=== PATIENT | male | born 1955 | race Caucasian/White ===

== ENCOUNTER → 2016-05-09 | Outpatient (CLI) | payer OTHER ==
[~2016-05-09] MED LIST: ATOR-24 PO; DLN/100 PO; DLN100 PO; HYDR12.56 PO; IBUP-1050 PO; IMAT400T PO; IMAT400T7 PO; PHEN32.44 PO; PHENOBARBITAL 97.2 MG PO
[2016-05-09 17:59] LABS: ALT/SGPT 46 U/L (12-78); AST/SGOT 31 U/L (15-37); BLOOD UREA NITROGEN 8 mg/dl (7-18); BUN/CREATININE RATIO 8.4 (10-20); CALCIUM 8.6 mg/dl (8.5-10.1); CARBON DIOXIDE 29 mmol/L (21-32); CHLORIDE 103 mmol/L (98-107); CREATININE 0.91 mg/dl (0.60-1.40); GLUCOSE 104 mg/dl (70-99); POTASSIUM 3.8 mmol/L (3.5-5.1); SODIUM 138 mmol/L (136-145)
[2016-05-09 18:00] LABS: PHENOBARBITAL 29.7 mcg/mL (15.0-40.0)
[2016-05-09 18:01] LABS: CHOLESTEROL 118 mg/dl (0-200); CHOLESTEROL/HDL RATIO 2.7; HDL CHOLESTEROL 43 mg/dl; LDL CHOLESTEROL CALCULATED 37 mg/dl; TRIGLYCERIDES 192 mg/dl (0-150); VERY LOW DENSITY LIPOPROT CALC 38 mg/dl
== END | disposition home or self-care (01) ==
LOC: C.LABPVFM 14:15
PROVIDERS: ATTEND Family Medicine
DX: E78.5 Hyperlipidemia, unspecified (principal); G40.309 Generalized idiopathic epilepsy and epileptic syndromes, not intractable, without status epilepticus; Z51.81 Encounter for therapeutic drug level monitoring; Z79.899 Other long term (current) drug therapy; I10 Essential (primary) hypertension; Z92.29 Personal history of other drug therapy; Z11.59 Encounter for screening for other viral diseases

== ENCOUNTER 2016-08-28 11:49 | Emergency (ER) | payer OTHER ==
[~2016-08-28] VITALS: Ht 185.4 cm; Wt 122.5 kg
[~2016-08-28 11:49] MED LIST changes: -IMAT400T7 PO; -PHEN32.44 PO
[2016-08-28 11:54] VITALS: BP 150/82; TEMP 36.8; Ht 185.4 cm; Wt 122.5 kg
[2016-08-28] MEDS ORDERED: PHEN32.44 PO (12:07)
[2016-08-28] MEDS ORDERED: IMAT400T7 PO (12:08)
--- NOTE | 2016-08-28 13:12 | DIAGNOSTIC IMAGING REPORT ---
LEFT HEEL MIN 2 VIEWS CLINICAL HISTORY: L heel pain pain COMPARISON: None. DISCUSSION: Heel spur. All remaining bony structures are unremarkable. Subtalar joint is intact. There is no evidence for soft tissue swelling. IMPRESSION: Heel spur. Otherwise negative study. The above report was generated using voice recognition software. It may contain grammatical, syntax or spelling errors. Electronically signed by: Romero Cagle M.D. 08/28/2016 1:11 PM Dictated Date/Time: 08/28/2016 1:10 PM
[2016-08-28 13:40] VITALS: PULSE 72; O2SAT 98
--- NOTE | 2016-08-28 20:41 | EMERGENCY ROOM VISIT NOTE ---
History First contact with patient: 12:34 Chief Complaint: HEEL PAIN Stated Complaint: LEFT HEEL PAIN History of Present Illness The patient is a 60 year old male who presents to the Emergency Room with complaints of left heel pain that has been worsening over the past month. The pain has been ongoing for the past month. The patient reports that he is on his feet all day long at home. He denies any known injury to the heel. He has not followed up with his family doctor regarding his current symptoms, and rates his pain a 9 out of 10 with weightbearing. The pain is worse in the morning after getting up, or when sitting for a while. Once he walks on the foot, the pain does seem to improve but never go away. The patient denies any pain extending into the calf or knee region. He denies any swelling of the left lower extremity. Review of Systems 10 system review was performed and was negative except for pertinent positives and negatives as indicated in history of present illness Past Medical/Surgical History Medical Problems: (1) Acute Venous Embolism & Thrombosis Unsp Deep Vessels Of Le (2) Diverticulosis Colon (W/O Ment Of Hemorrhage) (3) Epilepsy (4) Hyperlipidemia, Unspecified (5) Hypertension Nos (6) Leukemia (7) Vitamin D Deficiency Nos Surgical Problems: (1) History of lung surgery Family History FH: cancer FH: diabetes mellitus FH: gallbladder disease FH: heart disease FH: hypertension FH: seizures Social History Smoking Status: Former Smoker Alcohol Use: none Marital Status: single Housing Status: lives with family Occupation Status: unemployed Current/Historical Medications Scheduled Atorvastatin (Lipitor), 40 MG PO DAILY Hydrochlorothiazide (Hctz), 12.5 MG PO QD@08 Ibuprofen (Advil), 400 MG PO TID PRN Imatinib Mesylate (Imatinib Mesylate), 400 MG PO HS Phenobarbital (Phenobarbital), 97.2 MG PO DAILY Phenytoin Sodium (Dilantin), 200 MG PO AMPM Phenytoin Sodium (Dilantin), 100 MG PO EVERY AFTERNOON Physical Exam Vital Signs Date Time Temp Pulse Resp B/P (MAP) Pulse Ox O2 Delivery O2 Flow Rate FiO2 08/28/16 13:40 72 16 98 08/28/16 11:54 36.8 70 18 150/82 96 Room Air Physical Exam CONSTITUTIONAL: Healthy and well nourished. Alert and oriented X 3 with positive affect. HEENT: Normocephalic, atraumatic. Pupils equal, round and reactive. NECK: Full active range of motion without discomfort. MUSCULOSKELETAL: Examination of the left foot does not show any obvious soft tissue edema, erythema or wounds. The patient has tenderness over the origin of the plantar fascia. He also has mild tenderness through the lower Achilles tendon. No tenderness to palpation through the gastrocnemius. No focal tenderness over the ankle joint lines. Negative anterior draw. No focal tenderness over the dorsal midfoot or phalanges. Capillary refill is less than 2 seconds. INTEGUMENTARY: No rash or other significant dermatologic conditions noted. NEUROLOGIC: Left foot and toes are sensory intact. Medical Decision & Procedures ER Provider Diagnostic Interpretation: My interpretation of left heel x-rays does not show any acute fractures. A heel spur is noted. Radiologist report is as follows: LEFT HEEL MIN 2 VIEWS CLINICAL HISTORY: L heel pain pain COMPARISON: None. DISCUSSION: Heel spur. All remaining bony structures are unremarkable. Subtalar joint is intact. There is no evidence for soft tissue swelling. IMPRESSION: Heel spur. Otherwise negative study. ED Course Patient history and physical exam were performed. Nurse's notes were reviewed. Vital signs were reviewed and normal. History and clinical exam are consistent with plantar fasciitis. X-rays of the heel shows a small bone spur without evidence for fracture. The patient was given a handout regarding plantar fasciitis. I stressed the importance of deep ice massage and stretching. He was instructed to limit weightbearing until symptoms improve. I did suggest that he follow-up with Dr. Sen for further reevaluation and management as the patient reports that he has to be on his feet throughout the day, and understands that this is not a quick fix. He was encouraged to alternate ibuprofen and Tylenol as needed for pain. The patient was happy with plan of care, voiced understanding of all discharge instructions, and rated his pain a 4 out of 10 at the conclusion of my exam. Medical Decision Medication Reconcilliation Current Medication List: was personally reviewed by me Blood Pressure Screening Patient's blood pressure: Normal blood pressure Impression Primary Impression: Plantar fasciitis of left foot Departure Information Referrals Fantasma Wiggins M.D. (PCP) Patient Instructions My [facility]
== END 2016-08-28 13:41 | disposition home or self-care (01) ==
LOC: C.EDB 11:50 → C.EDD 13:41
DX: M72.2 Plantar fascial fibromatosis (principal); C95.90 Leukemia, unspecified not having achieved remission; G40.909 Epilepsy, unspecified, not intractable, without status epilepticus; I10 Essential (primary) hypertension; E78.5 Hyperlipidemia, unspecified; Z86.718 Personal history of other venous thrombosis and embolism; Z87.891 Personal history of nicotine dependence; Z98.890 Other specified postprocedural states; Z83.3 Family history of diabetes mellitus; Z82.49 Family history of ischemic heart disease and other diseases of the circulatory system; Z82.0 Family history of epilepsy and other diseases of the nervous system; Z79.899 Other long term (current) drug therapy

== ENCOUNTER → 2016-11-12 | Outpatient (CLI) | payer OTHER ==
[~2016-11-12] MED LIST changes: -IMAT400T PO; +IMAT400T7 PO; +PHEN32.44 PO; -PHENOBARBITAL 97.2 MG PO
[2016-11-12 17:39] LABS: ALT/SGPT 40 U/L (12-78); AST/SGOT 25 U/L (15-37); BLOOD UREA NITROGEN 10 mg/dl (7-18); BUN/CREATININE RATIO 10.5 (10-20); CALCIUM 8.9 mg/dl (8.5-10.1); CARBON DIOXIDE 27 mmol/L (21-32); CHLORIDE 102 mmol/L (98-107); CREATININE 0.93 mg/dl (0.60-1.40); GLUCOSE 115 mg/dl (70-99); POTASSIUM 3.7 mmol/L (3.5-5.1); SODIUM 136 mmol/L (136-145)
[2016-11-12 17:42] LABS: CHOLESTEROL 131 mg/dl (0-200); CHOLESTEROL/HDL RATIO 2.6; HDL CHOLESTEROL 51 mg/dl; LDL CHOLESTEROL CALCULATED 53 mg/dl; TRIGLYCERIDES 133 mg/dl (0-150); VERY LOW DENSITY LIPOPROT CALC 27 mg/dl
[2016-11-12 17:54] LABS: PHENOBARBITAL 24.1 mcg/mL (15.0-40.0)
== END ==
LOC: C.LABPVFM 14:50
PROVIDERS: ATTEND Family Medicine
DX: E78.5 Hyperlipidemia, unspecified (principal); I10 Essential (primary) hypertension; G40.309 Generalized idiopathic epilepsy and epileptic syndromes, not intractable, without status epilepticus

== ENCOUNTER 2017-01-17 15:17 | Emergency (ER) | payer OTHER ==
[~2017-01-17] VITALS: Ht 182.9 cm; Wt 124.7 kg
[2017-01-17 15:18] VITALS: TEMP 37; Ht 182.9 cm; Wt 124.7 kg
[2017-01-17] MEDS ORDERED: XYLOCAINE 1%/SOD BICARB 20 ML VIAL INFIL STA (15:26)
--- NOTE | 2017-01-17 15:34 | EMERGENCY ROOM VISIT NOTE ---
ED Visit Note First contact with patient: 15:22 Chief Complaint: "Laceration on left hand fingers". History of Present Illness: This patient is a 61-year-old male who presents to the Emergency Department via private vehicle for evaluation of their left fourth digit laceration. Patient sustained the laceration while moving a log splitter and crushed it between the wood pile and the hitch on the splitter. They report a minimal amount of bleeding initially. They deny any numbness or tingling into the distal extremity. They report no decreased range of motion of the affected digit. Patient rates his current discomfort as a 0/10. Patient' s Tetanus status is believed to be currently up-to-date. Medications: As noted below Allergies: None PMH: No pertinent SHx: Patient lives locally ROS: All pertinent positive and negative review of systems are appropriately documented in the History of Present Illness. Physical Exam: VITAL SIGNS - Vital signs and nursing notes were reviewed. Stable. Hypertensive. GENERAL -61-year-old male appearing his stated age who is in no acute distress. Communicates well with provider and answers questions appropriately. SKIN - There is a 1.5 cm long laceration noted to the ventral aspect at the base of the left fourth digit at the flexor crease. The edges gape apart with traction. No foreign bodies appreciated. Upon further examination there are no deep structures including vessel, tendon, or bony structures appreciated. There is no active bleeding noted. MUSCULOSKELETAL - Laceration as described above. +5/5 strength appreciated of the affected digit. Full range of motion of the affected digit. NEUROLOGIC - Spinothalamic tract was found to be intact with ability to discriminate sharp versus dull sensation. No sensory defects of the dorsal column were appreciated utilizing light touch for evaluation. VASCULAR - Capillary refill was brisk. IMAGING: L FINGER(S) MIN 2 VIEWS ROUTINE CLINICAL HISTORY: L 4th digit trauma at base. Concerned for FB and fx. COMPARISON: None FINDINGS: Alignment of the left fourth finger is anatomic. No acute fracture is identified. No radiopaque foreign bodies are identified. IMPRESSION: No fracture or radiopaque foreign body within the left fourth digit. Electronically signed by: Geo Mclain M.D. 01/17/2017 4:37 PM Dictated Date/Time: 01/17/2017 4:35 PM ED Course: Patient was seen and evaluated by myself. Risks and benefits of performing primary wound closure versus no repair were discussed with the patient who verbalizes understanding. Verbal consent was obtained prior to performing the procedure. 2 cc of buffered 1% lidocaine was used to perform local anesthetization of the left fourth digit. The wound was cleansed and prepped in the typical sterile fashion utilizing normal saline and Betadine. The wound was sterilely draped. Once proper anesthetization was established, the wound was further examined and demonstrated no deep involvement. The wound was copiously irrigated with normal saline and Betadine. The wound was closed using 3 simple, 5-0 nylon sutures with the wound edges being well approximated. Patient tolerated the procedure well. No complications were met. The wound was cleansed and dressed with a Bacitracin dressing. A metal splint was applied to the finger for comfort. He will be started on Keflex for infection prophylaxis secondary to the mechanism of injury/dirty nature of the wound. He was given the first dose here Patient educated on worrisome symptoms for return visit to the Emergency Department. Patient discharged to home in good condition. He is to return in 14 days for removal of the sutures. Problem List Medical Problems: (1) Epilepsy Status: Chronic (2) Leukemia Status: Chronic Current/Historical Medications Scheduled Atorvastatin (Lipitor), 40 MG PO DAILY Cephalexin Monohydrate (Keflex), 500 MG PO BID Hydrochlorothiazide (Hctz), 12.5 MG PO QD@08 Ibuprofen (Advil), 400 MG PO TID PRN Imatinib Mesylate (Imatinib Mesylate), 400 MG PO HS Phenobarbital (Phenobarbital), 97.2 MG PO DAILY Phenytoin Sodium (Dilantin), 200 MG PO AMPM Phenytoin Sodium (Dilantin), 100 MG PO EVERY AFTERNOON Allergies Coded Allergies: No Known Allergies (Unverified , 10/15/14) Vital Signs Date Time Temp Pulse Resp B/P (MAP) Pulse Ox O2 Delivery O2 Flow Rate FiO2 01/17/17 16:49 69 20 127/79 96 Room Air 01/17/17 15:18 37.0 77 20 161/83 99 Room Air Medications Administered Medications (Trade) Dose Ordered Sig/Yadira Route Start Time Stop Time Status Last Admin Dose Admin Cephalexin Monohydrate (Keflex Cap) 500 mg NOW STAT PO 01/17/17 16:30 01/17/17 16:31 DC 01/17/17 16:30 500 MG Departure Information Impression Primary Impression: Laceration Dispostion Home / Self-Care Condition GOOD Prescriptions Cephalexin Monohydrate (Keflex) 500 Mg Cap 500 MG PO BID for 7 Days, #14 CAP Prov: Lawrence Villalba PA-C 01/17/17 Referrals Fantasma Wiggins M.D. (PCP) Patient Instructions My [facility] Additional Instructions Discharge Instructions: You have received 3 sutures on your finger. These sutures are NOT dissolvable and WILL need to be removed by a health care provider in 14 days. You can return to the Emergency Department or contact your Primary Care Provider to have the sutures removed. Keflex every 12 hours to help prevent infection. Please wear the splint for comfort until the sutures are removed. Proper wound care is essential for adequate wound healing and infection prevention. You can shower and clean the wound with soap and water. Do not scour over the wound, pat dry with a towel. Do not submerse the wound (i.e. bathe or dish wash) until the sutures have been removed. You can use an antibiotic ointment with a dressing over the wound for the next 3-4 days then same bandage just no neosporin. After this time you may leave the wound dry and open to the air. If crust develops over the wound you can use a Q-tip to apply a 1:1 peroxide:water solution to clean the wound. Look for signs of infection of the wound including: increased pain, swelling, foul discharge, streaking, or increased temperature. If any of these are noticed you should return to the Emergency Department for further assessment and treatment. As with any laceration you may have received nerve damage to the surrounding tissues. This damage may or may not be permanent. You should keep the area covered with sunscreen for the first 6 months to 1 year when at risk for exposure to help minimize scarring. You can also use scar reducing creams or Vitamin E oil to help minimize scarring. For pain control, you can use the following [id number] medicines (if >12 yo): - Regular strength (325mg/tab) Tylenol (acetaminophen) 2 tabs every 4-6 hours as needed. Do not exceed 12 tablets in a 24 hour period. Avoid taking more than 3 grams (3000 mg) of Tylenol per day. This includes any other sources of acetaminophen you may take on a regular basis. - Regular strength (200 mg/tab) Advil (ibuprofen) 1-2 tabs every 4-6 hours as needed. Do not exceed a dose of 3200 mg per day. Return to the emergency department if your symptoms worsen despite treatment course outlined above.
[2017-01-17] MEDS ORDERED: CEPHALEXIN MONOHYDRATE 250 MG CAP PO STA (16:30)
[2017-01-17] MEDS ORDERED: CEPH500C PO (16:32)
--- NOTE | 2017-01-17 16:38 | DIAGNOSTIC IMAGING REPORT ---
L FINGER(S) MIN 2 VIEWS ROUTINE CLINICAL HISTORY: L 4th digit trauma at base. Concerned for FB and fx. COMPARISON: None FINDINGS: Alignment of the left fourth finger is anatomic. No acute fracture is identified. No radiopaque foreign bodies are identified. IMPRESSION: No fracture or radiopaque foreign body within the left fourth digit. Electronically signed by: Geo Mclain M.D. 01/17/2017 4:37 PM Dictated Date/Time: 01/17/2017 4:35 PM
[2017-01-17 16:49] VITALS: BP 127/79; PULSE 69; O2SAT 96
== END 2017-01-17 16:51 | disposition home or self-care (01) ==
LOC: C.EDB 15:18 → C.EDD 16:51
DX: S61.215A Laceration without foreign body of left ring finger without damage to nail, initial encounter (principal); W23.0XXA Caught, crushed, jammed, or pinched between moving objects, initial encounter; Z79.1 Long term (current) use of non-steroidal anti-inflammatories (NSAID)

== ENCOUNTER 2017-01-30 09:52 | Emergency (ER) | payer OTHER ==
[~2017-01-30] VITALS: Ht 182.9 cm; Wt 123.1 kg
[2017-01-30 09:55] VITALS: BP 142/78; PULSE 69; TEMP 36.7; O2SAT 97; Ht 182.9 cm; Wt 123.1 kg
--- NOTE | 2017-01-30 10:15 | EMERGENCY ROOM VISIT NOTE ---
History First contact with patient: 10:02 Chief Complaint: SUTURE/STAPLE REMOVAL Stated Complaint: SUTURE REMOVAL Nursing Triage Summary: pt here for suture removal from left palm of hand. 3 sutures placed here History of Present Illness The patient is a 61 year old male who presents to the Emergency Room for suture removal from a left hand laceration that was repaired in our facility 13 days ago. The patient denies any wound complications or chronic pain. Review of Systems Noncontributory Past Medical/Surgical History Medical Problems: (1) Acute Venous Embolism & Thrombosis Unsp Deep Vessels Of Le (2) Diverticulosis Colon (W/O Ment Of Hemorrhage) (3) Epilepsy (4) Hyperlipidemia, Unspecified (5) Hypertension Nos (6) Leukemia (7) Vitamin D Deficiency Nos Surgical Problems: (1) History of lung surgery Family History FH: cancer FH: diabetes mellitus FH: gallbladder disease FH: heart disease FH: hypertension FH: seizures Social History Smoking Status: Never Smoker Alcohol Use: none Marital Status: single Housing Status: lives with family Occupation Status: unemployed Current/Historical Medications Scheduled Atorvastatin (Lipitor), 40 MG PO DAILY Hydrochlorothiazide (Hctz), 12.5 MG PO QD@08 Ibuprofen (Advil), 400 MG PO TID PRN Imatinib Mesylate (Imatinib Mesylate), 400 MG PO HS Phenobarbital (Phenobarbital), 97.2 MG PO DAILY Phenytoin Sodium (Dilantin), 200 MG PO AMPM Phenytoin Sodium (Dilantin), 100 MG PO EVERY AFTERNOON Physical Exam Vital Signs Date Time Temp Pulse Resp B/P (MAP) Pulse Ox O2 Delivery O2 Flow Rate FiO2 01/30/17 09:55 36.7 69 18 142/78 97 Room Air Pain Rating (0-10): 0 Physical Exam MUSCULOSKELETAL: Examination shows a well-healing laceration at the volar base of the fourth finger/palm region. No erythema, fluctuance, drainage or diastases noted. All sutures were removed without any complications. Medical Decision & Procedures ED Course The patient was encouraged to avoid any undue strain on the wound. Additional wound care instructions were also discussed with the patient. Medical Decision Blood Pressure Screening Patient's blood pressure: Normal blood pressure Impression Primary Impression: Encounter for removal of sutures Additional Impression: Laceration of left hand Departure Information Referrals Fantasma Wiggins M.D. (PCP) Patient Instructions My [facility] Problem Qualifiers Additional Impression: Laceration of left hand Encounter type: subsequent encounter Foreign body presence: without foreign body Qualified Codes: S61.412D - Laceration without foreign body of left hand , subsequent encounter
== END 2017-01-30 10:09 | disposition home or self-care (01) ==
LOC: C.EDB 09:53
DX: S61.412D Laceration without foreign body of left hand, subsequent encounter (principal); X58.XXXD Exposure to other specified factors, subsequent encounter

== ENCOUNTER → 2017-05-29 | Outpatient (CLI) | payer OTHER ==
[2017-05-29 18:01] LABS: ALBUMIN 3.7 gm/dl (3.4-5.0); BLOOD UREA NITROGEN 7 mg/dl (7-18); CALCIUM 8.6 mg/dl (8.5-10.1); CARBON DIOXIDE 27 mmol/L (21-32); CREATININE 0.95 mg/dl (0.60-1.40); GLUCOSE 101 mg/dl (70-99); POTASSIUM 4.1 mmol/L (3.5-5.1); SODIUM 136 mmol/L (136-145)
[2017-05-29 18:07] LABS: ALKALINE PHOSPHATASE 109 U/L (45-117); ALT/SGPT 44 U/L (12-78); AST/SGOT 27 U/L (15-37); CHOLESTEROL 139 mg/dl (0-200); LDL CHOLESTEROL CALCULATED 56 mg/dl; TOTAL PROTEIN 7.4 gm/dl (6.4-8.2)
[2017-05-29 18:09] LABS: PHENYTOIN (DILANTIN) 5.1 mcg/mL (10-20)
== END | disposition home or self-care (01) ==
LOC: C.LABPVFM 13:24
PROVIDERS: ATTEND Nurse Practitioner Family
DX: G40.309 Generalized idiopathic epilepsy and epileptic syndromes, not intractable, without status epilepticus (principal); E78.5 Hyperlipidemia, unspecified; I10 Essential (primary) hypertension; Z51.81 Encounter for therapeutic drug level monitoring

== ENCOUNTER → 2017-06-12 | Outpatient (CLI) | payer OTHER | END | disposition home or self-care (01) | LOC: C.LABPVFM 09:44 | PROVIDERS: ATTEND Nurse Practitioner Family | DX: Z51.81 Encounter for therapeutic drug level monitoring (principal); Z79.899 Other long term (current) drug therapy ==

== ENCOUNTER 2023-09-23 11:27 | Observation (INO) ==
[2023-09-23] MEDS ORDERED: VANCOMYCIN CONSULT ACTIVE PRN (11:47)
--- NOTE | 2023-09-23 11:52 | Emergency Department Note ---
Impression & Plan Cellulitis, Acute leg pain, Hyperglycemia ED Provider Note NAME: BENEDICT GONZALEZ AGE: 67 SEX: M : 1955 ARRIVES VIA: Walk-In INFORMANT: Patient ED PROVIDER(S): Vahe Quinn DO CHIEF COMPLAINT: cellulitis HPI: Patient is a 67-year-old male with a past medical history of PACs, effusion, hypertension, hyperlipidemia who presents to the ER for left calf pain. He notes this started last Thursday or Thursday. It has been gradually getting worse. He was seen here and placed on antibiotics and is taking Keflex. He notes it has continued to get worse. Denies any fevers. No headache or change in vision. No chest pain or shortness of breath. No nausea, vomiting, or diarrhea. ADDITIONAL HISTORY OBTAINED: Per HPI Chronic Medical/Social Conditions Affecting Care: Per HPI PAST MEDICAL HISTORY:See Below PAST SURGICAL HISTORY:See Below FAMILY HISTORY:See Below SOCIAL HISTORY:See Below HOME MEDICATIONS:See Below ALLERGIES:See Below VITALS:See Below PHYSICAL EXAMINATION: GENERAL: Sitting up in bed, alert, well appearing, well nourished, no distress, non-toxic EYE EXAM: normal conjunctiva. OROPHARYNX:mucous membranes are moist LUNGS: Clear to auscultation. Normal chest wall mechanics HEART: no murmurs, S1 normal and S2 normal ABDOMEN: abdomen soft, non-tender, normo-active bowel sounds, no masses, no rebound or guarding. BACK: Back is symmetrical on inspection and there is no deformity, no midline tenderness, no CVA tenderness. UPPER EXTREMITIES: upper extremities are grossly normal. LOWER EXTREMITIES: Erythema of the left calf circumferentially. Skin is warm and tender to palpation. NEURO EXAM: Normal sensorium, cranial nerves II-XII grossly intact, normal speech, no gross weakness of arms, no gross weakness of legs. MEDICAL DECISION MAKING: Patient is a 67-year-old male who presents ER for the above-stated complaint. IV was established blood work is obtained. Labs show no significant leukocytosis or anemia. BMP with a mild hyponatremia 133. LFTs bilirubin is unremarkable. On exam clinically patient has a left lower extremity cellulitis which is warm and tender to palpation. Patient was given IV Rocephin and vancomycin. Patient was updated bedside. Discussed with the hospitalist for further evaluation management treatment. His Doppler of the left lower extremity shows no DVT performed on the this month. This was not repeated here. Consults/Care Managements Discussions: Per MDM Triage Nursing notes reviewed. Limited review of prior medical records performed Vital Signs: reviewed and remarkable for HTN Differential diagnosis: Cellulitis, abscess, MRSA infection, DVT, necrotizing fasciitis, dermatitis, drug eruption, allergic reaction, as well as other pathologies. ER treatment provided: See below Diagnostics interpreted by me include EKG and cardiac monitoring as listed below: -Cardiac Monitoring: An order was placed for continuous cardiac monitoring. The monitor shows a rate of 80 with sinus rhythm. -ECG: none -Laboratory studies:Interpreted by me as stated above in MDM and shown below. Imaging studies: Xrays: As interpreted by me:none CTs show: none Procedures:none Critical Care: None Past Med/Surg History Problem List (Updated 09/23/23 @ 14:19 by Vahe Quinn DO) Hyperglycemia (Acute) Acute leg pain (Acute) Cellulitis (Acute) Cellulitis (Acute) Hypothyroidism PAC (premature atrial contraction) Irregular heart rate Diabetes mellitus Excessive cerumen in both ear canals Effusion, left knee Left knee pain Conductive hearing loss of right ear with unrestricted hearing of left ear Hyperlipidemia Hypertension (Chronic) Chronic granulocytic leukemia History of long-term treatment with high-risk medication (Chronic) Primary generalized epilepsy, major Vitamin D deficiency Medical History (Updated 09/23/23 @ 14:19 by Vahe Quinn DO) Acute venous embolism, thrombosis of superfic veins of upper extremity Calcific tendinitis Diverticulosis of colon Elevated Dilantin level Hypocalcemia Diffuse pain in left lower extremity Therapeutic drug monitoring Seizure hx of grand mal, last seizure about 30 yrs ago ()--on meds Surgical History History of lung surgery right lung for pleurisy History of colonoscopy History of tooth extraction all top teeth, wisdom teeth History of lung surgery Family History Brother Family hx of colon cancer Pancreatic cancer Colorectal cancer Mother Pancreatic cancer Hypertension Father Myocardial infarction Prostate cancer Denies family history of Ovarian cancer Clotting disorder Breast cancer Social History Smoking Status: Former smoker Tobacco Type: Cigarettes Age Quit Using Tobacco: 25; packs per day: 1.5; Cigarettes Per Day: 30; Second Hand Exposure: No (father smoked); Do You Dip or Chew Tobacco: No; Hx Alcohol Use: No Hx Substance Use: No Preferred Language: Bulgarian Communication Ability: Effective Visual Impairment: Limited Hearing Ability: Normal 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 Beliefs That Will Affect Care: None marital status: Single Current Living Situation: Alone current occupational status: retired How many Children do You have: 0 Feels Safe at Home: Hesitant to Answer Childhood Exposure to Second-Hand Smoke: Yes Diet: regular caffeine: Yes during the past year weight has: remained stable Dental Care, Regularly: Yes Physical Activity Frequency: Daily Seatbelt Use: always Sunscreen Use: No Assistive Devices: Denture - Upper, Denture - Lower and Glasses Allergies Allergies Allergy/AdvReac Type Severity Reaction Status Date / Time No Known Drug Allergies Allergy Verified 08/04/23 14:25 Home Meds Home Medications Medication Instructions Recorded Confirmed imatinib 400 mg tablet (Gleevec) 400 mg PO HS 01/27/18 09/23/23 Previous Rx's Medication Instructions Recorded atorvastatin 20 mg tablet 20 mg PO QPM #90 tabs 02/03/23 phenytoin sodium extended 100 mg 100 mg PO .COMPLEX #150 caps 02/16/23 capsule metformin 500 mg tablet,extended 500 mg PO BID #180 tabs 07/22/23 release 24 hr losartan 50 mg tablet 75 mg (1.5 x 50 mg) PO DAILY #45 08/04/23 tabs phenobarbital 97.2 mg tablet 194.4 mg (2 x 97.2 mg) PO HS #60 08/12/23 tabs levothyroxine 50 mcg capsule 50 mcg PO DAILY #30 caps 08/25/23 cephalexin 500 mg capsule 500 mg PO QID 7 days #28 caps 09/17/23 Results & Data (ED) Vital Signs Vital Signs - 24 hr 09/23/23 11:29 Temperature 36.7 C Temperature Source Temporal Artery Scan Pulse Rate 88 Respiratory Rate 18 Respiratory Effort / Characteristics Non-Labored Spontaneous Respiratory Depth Normal Blood Pressure 174/86 H Blood Pressure Mean 115 Blood Pressure Position Sitting Pulse Oximetry 96 Oxygen Delivery Method Room Air Sepsis Recent Fever Within 48 Hours No Sepsis New/Unexplained Change in Mental Status No Sepsis Action Taken by Nursing No Action Required Laboratory Data 09/23/23 12:02 09/23/23 12:02 Lab Results 09/23/23 Range/Units 12:02 WBC 7.17 (4.8-10.8) K/ul RBC 3.95 L (4.70-6.10) M/uL Hgb 12.3 L (14.0-18.0) g/dl Hct 35.8 L (42.0-52.0) % MCV 90.6 (80.0-100.0) fL MCH 31.1 (25.0-34.0) pg MCHC 34.4 (32.0-36.0) g/dL RDW Std Deviation 41.2 (36.4-46.3) fL RDW Coeff of Maverick 12.3 (11.5-14.5) % Plt Count 530 H (130-400) K/uL MPV 10.2 (9.4-12.4) fL Immature Gran % (Auto) 1.5 % Neut % (Auto) 57.5 % Lymph % (Auto) 25.5 % [place] % (Auto) 8.8 % Eos % (Auto) 5.7 % Baso % (Auto) 1.0 % Neut # (Auto) 4.12 (1.40-6.50) K/uL Lymph # (Auto) 1.83 (1.20-3.40) K/uL [place] # (Auto) 0.63 H (0.11-0.59) K/uL Eos # (Auto) 0.41 (0.00-0.50) K/uL Baso # (Auto) 0.07 (0.00-0.20) K/uL Immature Gran # (Auto) 0.11 (0.01-0.20) K/uL Sodium 133 L (136-145) mmol/L Potassium 4.2 (3.5-5.1) mmol/L Chloride 101 (98-107) mmol/L Carbon Dioxide 24 (21-32) mmol/L Anion Gap 8 (3-11) BUN 7 (6-23) mg/dl Creatinine 0.76 (0.6-1.4) mg/dl Est Cr Clr Drug Dosing 133.3 ml/min Est GFR ( Amer) 107.9 ml/min Est GFR (Non-Af Amer) 93.1 ml/min BUN/Creatinine Ratio 9.2 L (10-20) Glucose 265 H (70-99(Fasting)) mg/dl Calcium 8.7 (8.6-10.3) mg/dl Total Bilirubin 0.3 (0.2-1.0) mg/dl AST 14 (13-39) U/L ALT 18 (7-52) U/L Alkaline Phosphatase 76 (34-104) U/L Total Protein 6.5 (6.0-8.3) gm/dl Albumin 3.7 (3.4-5.0) gm/dl Globulin 2.8 (2.5-4.0) gm/dl Albumin/Globulin Ratio 1.3 (0.9-2) Administered Medications Vancomycin HCl 2,750 mg/ (Sodium Chloride) 555 mls @ 200 mls/hr IV NOW ONE Stop: 09/23/23 14:16 Last Admin: 09/23/23 12:16 Dose: 200 mls/hr Documented By: CJ Discontinued Medications Ceftriaxone Sodium (Rocephin) 2,000 mg in 50 mls @ 100 mls/hr IV NOW STA Stop: 09/23/23 12:16 Last Infusion: 09/23/23 12:28 Dose: Infused Documented By: Admin: 09/23/23 11:57 Dose: 100 mls/hr Documented By: CJ Discharge Plan Visit Data Chief Complaint: Infection Stated Complaint: SKIN INFECTION ED Provider: Vahe Quinn Discharge Problem: Cellulitis, Acute leg pain, Hyperglycemia Forms Stand Alone Forms: My [facility] Prescriptions Prescriptions: No Action atorvastatin 20 mg tablet 20 mg PO QPM Qty: 90 3RF phenytoin sodium extended 100 mg capsule 100 mg PO .COMPLEX Qty: 150 11RF Rx Instructions: 300 mg (3x100 mg) po bid per pt 100 mg PO TAKE 2 CAPSULES IN THE MORNING, 1 CAPSULE MID DAY, AND 2 CAPSULES IN THE EVENING.; metformin 500 mg tablet extended release 24 hr 500 mg PO BID Qty: 180 3RF phenobarbital 97.2 mg tablet 194.4 mg PO HS Qty: 60 5RF levothyroxine 50 mcg capsule 50 mcg PO DAILY Qty: 30 5RF losartan 50 mg tablet 75 mg PO DAILY Qty: 45 11RF Rx Instructions: pt aware dose change imatinib [Gleevec] 400 mg Tablet 400 mg PO HS cephalexin 500 mg capsule 500 mg PO QID 7 Days Qty: 28 0RF Referrals Referrals: Bree Branch CRNP [Primary Care Provider] - Discharge Problem: Cellulitis Qualifiers: Site of cellulitis: unspecified site Qualified Code(s): L03.90 - Cellulitis, unspecified Acute leg pain Qualifiers: Laterality: left Qualified Code(s): M79.605 - Pain in left leg
[2023-09-23] MEDS: cefTRIAXone SODIUM 2,000 MG/50 ML BAG IV STA (11:57)
[2023-09-23] MEDS: VANCOMYCIN HCL 2,750 MG in SODIUM CHLORIDE 0.9% 500 ML IV ONE (12:16)
[2023-09-23 12:21] LABS: Basophils # (auto) 0.07 K/uL (0.00-0.20); Eosinophils # (auto) 0.41 K/uL (0.00-0.50); Eosinophils % (auto) 5.7 %; Hematocrit (blood only) 35.8 % (42.0-52.0); Hemoglobin 12.3 g/dl (14.0-18.0); Immature Granulocytes # (auto) 0.11 K/uL (0.01-0.20); Immature Granulocytes % (auto) 1.5 %; Lymphocytes # (auto) 1.83 K/uL (1.20-3.40); Lymphocytes % (auto) 25.5 %; Mean Corpuscular Hemoglobin 31.1 pg (25.0-34.0); Mean Corpuscular Hgb Conc 34.4 g/dL (32.0-36.0); Mean Corpuscular Volume 90.6 fL (80.0-100.0); Mean Platelet Volume 10.2 fL (9.4-12.4); Monocytes # (auto) 0.63 K/uL (0.11-0.59); Monocytes % (auto) 8.8 %; Neutrophils # (auto) 4.12 K/uL (1.40-6.50); Neutrophils % (auto) 57.5 %; Platelet Count 530 K/uL (130-400); RDW Coefficient of Variation 12.3 % (11.5-14.5); RDW Standard Deviation 41.2 fL (36.4-46.3); Red Blood Count 3.95 M/uL (4.70-6.10); White Blood Count 7.17 K/ul (4.8-10.8)
[2023-09-23 12:32] LABS: Albumin Globulin Ratio 1.3 (0.9-2); Albumin Level 3.7 gm/dl (3.4-5.0); BUN Creatinine Ratio 9.2 (10-20); Bilirubin,Total 0.3 mg/dl (0.2-1.0); Calcium 8.7 mg/dl (8.6-10.3); Creatinine Clr Calc Pharmacy 133.3 ml/min; Est GFR (African American) 107.9 ml/min; Est GFR (Non-African American) 93.1 ml/min; Globulin 2.8 gm/dl (2.5-4.0); Potassium 4.2 mmol/L (3.5-5.1); Total Protein 6.5 gm/dl (6.0-8.3)
--- NOTE | 2023-09-23 12:50 | History & Physical Report ---
Date of Service September 23, 2023 Assessment & Plan (1) Cellulitis: Plan: Diabetic cellulitis and potentially immunocompromise patient, failed Keflex Will transition to Unasyn for DFI with history of immunosuppressants, without high risk neutropenia. Target augmentin for dc if improving. Received empiric vancomycin while in the ER. No purulence or abscess on exam. Will defer additional doses. If clinically worsening or purulence develops, can add daptomycin and expand coverage to Zosyn vs class switch for pseudomonal coverage. Statin temporarily held. Patient reports no medication allergies, denies penicillin allergy Worsening over 1 week. No fever chills or sweats No leukocytosis Sharply demarcated erythema with very significant tenderness even to light touch? Erysipelas - Pt is not septic on admission (2) Chronic granulocytic leukemia: Plan: CML, in remission On Gleevec nightly BAG END SEWER. Temporarily held for acute infection WBC count normal Platelet count elevated, suspect reactive (3) Diabetes mellitus: Plan: Type II DM Patient reports that this is well-controlled on metformin. Last A1c 7.1% Basal bolus while admitted History of epilepsy/seizures Patient reports stable for many years on phenobarbital and Dilantin. He takes 2 capsules of 97.2 mg phenobarbital in the evening, last took this last night. Also takes 3 capsules of 100 mg phenytoin twice daily, last took this this morning. Continued. Seizure precautions Ativan on-call if needed for acute seizure activity Plan Chronic stable issues: Hypertension Losartan continued Hypothyroidism Synthroid continued DVT prophylaxis: Lovenox Disposition: Medical/surgical CODE STATUS: Full code Diet: Heart healthy/DM2 History of Present Illness Primary Care Provider: RADHA Dubon Worsening LLE cellulitis . Has had multiple episodes of cellulitis in the past, normally resolved with antibiotics. Reports this episode has been progressive over the last week, has been on "a few days "of Keflex but has had progressive expansion of redness, and increasing tenderness to even light touch of the skin. Left lower leg only. Denies preceding injury/wound/cut. Denies fever/chills/sweats. Denies syncope/presyncope. No cough, congestion, URI symptoms. Hx epilepsy. Took phenobarb last night. Took 2 tabs. Also takes dilantin 3 capsules BID. Took this morning. Last seizur many years ago. Hx of CML on Gleevec No history of aneurysms or blood vessel abnormalities Does not use tobacco products NO chest pain or chest pressure Medical History: Reviewed Medications: Reviewed Surgical History: Reviewed Family history: Reviewed Allergies: Reviewed Social History: Reviewed. Denies tobacco/etoh Code Status: Full Allergies Allergy/AdvReac Type Severity Reaction Status Date / Time No Known Drug Allergies Allergy Verified 08/04/23 14:25 Home Medications Medication Instructions Recorded Confirmed Type imatinib 400 mg tablet (Gleevec) 400 mg PO HS 01/27/18 08/04/23 History atorvastatin 20 mg tablet 20 mg PO QPM #90 tabs 02/03/23 08/04/23 Rx phenytoin sodium extended 100 mg 100 mg PO .COMPLEX #150 caps 02/16/23 08/04/23 Rx capsule metformin 500 mg tablet,extended 500 mg PO BID #180 tabs 07/22/23 08/04/23 Rx release 24 hr losartan 50 mg tablet 75 mg (1.5 x 50 mg) PO DAILY #45 08/04/23 08/04/23 Rx tabs phenobarbital 97.2 mg tablet 194.4 mg (2 x 97.2 mg) PO HS #60 08/12/23 Rx tabs levothyroxine 50 mcg capsule 50 mcg PO DAILY #30 caps 08/25/23 Rx cephalexin 500 mg capsule 500 mg PO QID 7 days #28 caps 09/17/23 Rx Past Med/Surg History Problem List (Updated 09/17/23 @ 12:20 by Lucia Bazan MD) Cellulitis (Acute) Hypothyroidism PAC (premature atrial contraction) Irregular heart rate Diabetes mellitus Excessive cerumen in both ear canals Effusion, left knee Left knee pain Conductive hearing loss of right ear with unrestricted hearing of left ear Hyperlipidemia Hypertension (Chronic) Chronic granulocytic leukemia History of long-term treatment with high-risk medication (Chronic) Primary generalized epilepsy, major Vitamin D deficiency Medical History (Updated 09/17/23 @ 12:20 by Lucia Bazan MD) Acute venous embolism, thrombosis of superfic veins of upper extremity Calcific tendinitis Diverticulosis of colon Elevated Dilantin level Hypocalcemia Diffuse pain in left lower extremity Therapeutic drug monitoring Seizure hx of grand mal, last seizure about 30 yrs ago ()--on meds Surgical History History of lung surgery right lung for pleurisy History of colonoscopy History of tooth extraction all top teeth, wisdom teeth History of lung surgery Family History Brother Family hx of colon cancer Pancreatic cancer Colorectal cancer Mother Pancreatic cancer Hypertension Father Myocardial infarction Prostate cancer Denies family history of Ovarian cancer Clotting disorder Breast cancer Social History Smoking Status: Former smoker Tobacco Type: Cigarettes Age Quit Using Tobacco: 25; packs per day: 1.5; Cigarettes Per Day: 30; Second Hand Exposure: No (father smoked); Do You Dip or Chew Tobacco: No; Hx Alcohol Use: No Hx Substance Use: No Preferred Language: Georgian Communication Ability: Effective Visual Impairment: Limited Hearing Ability: Normal 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 NAD. Cooperative. HEENT: Atraumatic, normocephalic. Vision/hearing grossly intact Pulm: CTAB A&P. -wheezes, -rales, -rhonchi. Symmetrical chest rise. No increased work of breathing. No respiratory distress. Cardiac: RRR, -mrg. Radial pulses intact and symmetrical. Abdominal: Nontender, nondistended, soft. BS present. Ext: sharply demarcated, exquisitely tender erythema of the LLE. Marked with surgical pen. No purulence or discharge. Results & Data Results & Data Vital Signs (Past 12 Hours) Vital Signs Temp Pulse Resp BP Pulse Ox O2 Del Method 09/23/23 11:29 36.7 C 88 18 174/86 H 96 Room Air PG Care Time/CCT Total # of Minutes Spent Total Time Spent with Patient: Total time spent is greater than 50% in coordination of care (as documented) at patient's floor/unit and/or counseling patient: Coding Level of Care Code 96726 INT INP/OBS CARE Diagnoses Cellulitis L03.90 Chronic granulocytic leukemia C92.10 Type 2 diabetes mellitus without complication, without long-term current use of insulin E11.9 Diabetes mellitus type: type 2 Diabetes mellitus mcc insulin use: without mcc use Diabetes mellitus complication status: without complication (3) Diabetes mellitus Diabetes mellitus type: type 2 Diabetes mellitus mcc insulin use: without mcc use Diabetes mellitus complication status: without complication Qualified Code(s): E11.9 - Type 2 diabetes mellitus without complications
[2023-09-23 14:25] LABS: C Reactive Protein 2.97 mg/dl (0-0.5)
[2023-09-23] MEDS ORDERED: GLUCAGON FOR INJ 1 MG VIAL SQ PRN (15:37)
[2023-09-23] MEDS ORDERED: GLUCOSE 10 TAB/TUBE PO PRN (15:37)
[2023-09-23] MEDS ORDERED: GLUCOSE 40% GEL 15 GM TUBE PO PRN (15:37)
[2023-09-23] MEDS ORDERED: DEXTROSE 50% 50 ML SYRINGE IV PRN (15:37)
[2023-09-23] MEDS ORDERED: POLYETHYLENE (MIRALAX) 17 GM PACK PO PRN (15:37)
[2023-09-23] MEDS ORDERED: LORazepam 2 MG in SYRINGE 1 ML IV PRN (15:37)
[2023-09-23] MEDS ORDERED: CARBOHYDRATES FOR HYPOGLYCEMIA PO PRN (15:37)
[2023-09-23] MEDS: AMPICILLIN/SULBACTAM SOD 3,000 MG/100 ML BAG IV SCH (16:34)
[2023-09-23] MEDS: INSULIN ASPART PER UNIT CHARGE SC SCH (17:41)
[2023-09-23 18:20] LABS: Estimated Average Glucose 174 mg/dl; Hemoglobin A1C 7.7 % (4.5-5.6)
[2023-09-23] MEDS: PHENYTOIN SODIUM ER 100 MG CAP PO SCH (21:19)
[2023-09-23] MEDS: PHENobarbitaL 20 MG/5 ML PO SCH (21:19)
[2023-09-23 21:34] VITALS: PULSE 75
[2023-09-23] MEDS: LANTUS PER UNIT CHARGE SQ SCH (21:44)
[2023-09-23] MEDS: ACETAMINOPHEN 325 MG TAB PO PRN (22:11)
[2023-09-24] MEDS: LEVOTHYROXINE SODIUM 50 MCG TABLET PO SCH (05:42)
[2023-09-24 07:12] VITALS: BP 171/81; RESP 18; TEMP 98.4; O2SAT 97
--- NOTE | 2023-09-24 08:11 | Hospitalist Progress Note ---
Date of Service September 24, 2023 Assessment & Plan (1) Cellulitis: Plan: Presented with progressive worsening of LLE cellulitis over the last week prior to admission. History of multiple episodes of cellulitis in the past. - Diabetic cellulitis, potentially immunocompromised patient, failed Keflex as outpatient. Denies preceding injury/wound/cut. - No leukocytosis, afebrile, not septic on admission. - Continue Unasyn for diabetic foot infection with history of im munosuppressants, without high risk of neutropenia. > Target Augmentin for discharge if improving. > Statin temporarily held. - If clinically worsening or purulence develops, can add daptomycin to expand coverage to Zosyn versus class switch for pseudomonal coverage. - Sharply demarcated erythema with very significant tenderness even to light touch --> ?cellulitis vs erysipelas. Regardless, treatment remains the same as outlined above. (2) Chronic granulocytic leukemia: Plan: CML, in remission On Gleevec nightly prior to admission. Temporarily held for acute infection. WBC count normal Platelet count elevated, suspect reactive (3) Diabetes mellitus: Plan: Patient reports that this is well-controlled on metformin. - A1c 7.7% on 09/24/2023. - Basal bolus while admitted (4) Primary generalized epilepsy, major: Plan: Patient reports stable for many years on phenobarbital and Dilantin. - He takes 2 capsules of 97.2 mg phenobarbital in the evening. Also takes 3 capsules of 100 mg phenytoin twice daily. Continued. - Seizure precautions - Ativan on-call if needed for acute seizure activity Plan Chronic stable issues: Hypertension Losartan continued Hypothyroidism Synthroid continued DVT prophylaxis: Lovenox CODE STATUS: Full code Admission and Anticipated Discharge Date Admission Date: September 23, 2023 Physical Exam Physical Exam: General: A&Ox3. NAD. Cooperative. HEENT: Atraumatic, normocephalic. Vision/hearing grossly intact Pulm: CTAB A&P. -wheezes, -rales, -rhonchi. Symmetrical chest rise. No increased work of breathing. No respiratory distress. Cardiac: RRR, -mrg. Radial pulses intact and symmetrical. Abdominal: Nontender, nondistended, soft. BS present. Ext: sharply demarcated, exquisitely tender erythema of the LLE. Marked with surgical pen. No purulence or discharge. Results & Data Results & Data Vital Signs (Past 12 Hours) Vital Signs Temp Pulse Resp BP Pulse Ox O2 Del Method 09/24/23 07:11 36.9 C 75 18 171/81 H 97 Room Air 09/23/23 21:33 37 C 75 20 167/92 H 99 Room Air 09/23/23 21:00 Room Air Laboratory Results Reviewed CBC Reviewed CMP PG Care Time/CCT Total # of Minutes Spent Total Time Spent with Patient: Total time spent is greater than 50% in coordination of care (as documented) at patient's floor/unit and/or counseling patient: Coding Diagnoses Cellulitis L03.90 Chronic granulocytic leukemia C92.10 Type 2 diabetes mellitus without complication, without long-term current use of insulin E11.9 Diabetes mellitus type: type 2 Diabetes mellitus terminal operator insulin use: without terminal operator use Diabetes mellitus complication status: without complication Primary generalized epilepsy, major G40.309 (3) Diabetes mellitus Diabetes mellitus type: type 2 Diabetes mellitus halfway insulin use: without terminal operator use Diabetes mellitus complication status: without complication Qualified Code(s): E11.9 - Type 2 diabetes mellitus without complications
[2023-09-24] MEDS: LOSARTAN POTASSIUM 25 MG TAB PO SCH (09:37)
[2023-09-24] MEDS: metFORMIN HCL ER 500 MG TABCR PO SCH (13:04)
[2023-09-24] MEDS ORDERED: PHENYTOIN SODIUM ER 100 MG CAP PO SCH (15:00)
--- NOTE | 2023-09-24 17:27 | Discharge Summary ---
Discharge Summary Date of Service September 24, 2023 Principal Dx & Hospital Course #1 = Principal Diagnosis (1) Cellulitis: Presented with progressive worsening of LLE cellulitis over the last week prior to admission. History of multiple episodes of cellulitis in the past. - Diabetic cellulitis, potentially immunocompromised patient, failed Keflex as outpatient. Denies preceding injury/wound/cut. - No leukocytosis, afebrile, not septic on admission. -Treated with Unasyn for diabetic foot infection with history of immunosuppressants, without high risk of neutropenia while hospitalized. - Sharply demarcated erythema with very significant tenderness even to light touch --> ?cellulitis vs erysipelas. Regardless, treatment remains the same. - Discharged on Augmentin x 7 days - Follow-up with PCP (2) Chronic granulocytic leukemia: CML, in remission On Gleevec nightly prior to admission. Temporarily held for acute infection while hospitalized. WBC count normal Platelet count elevated, suspect reactive (3) Diabetes mellitus: Patient reports that this is well-controlled on metformin. - A1c 7.7% on 09/24/2023. - Basal bolus while admitted (4) Primary generalized epilepsy, major: Patient reports stable for many years on phenobarbital and Dilantin. - He takes 2 capsules of 97.2 mg phenobarbital in the evening. Also takes 3 capsules of 100 mg phenytoin twice daily. Continued. - Seizure precautions Plan Chronic stable issues: Hypertension Losartan continued Hypothyroidism Synthroid continued CODE STATUS: Full code Notes For Next Care Provider Presented with left lower extremity cellulitis after failing outpatient Keflex. Significantly improved after 1 day of inpatient hospitalization on Unasyn. Was discharged on Augmentin x 7 days. Medication Changes From Visit Augmentin x 7 days Admission HPI Per Admitting Provider Worsening LLE cellulitis . Has had multiple episodes of cellulitis in the past, normally resolved with antibiotics. Reports this episode has been progressive over the last week, has been on "a few days "of Keflex but has had progressive expansion of redness, and increasing tenderness to even light touch of the skin. Left lower leg only. Denies preceding injury/wound/cut. Denies fever/chills/sweats. Denies syncope/presyncope. No cough, congestion, URI symptoms. Hx epilepsy. Took phenobarb last night. Took 2 tabs. Also takes dilantin 3 capsules BID. Took this morning. Last seizur many years ago. Hx of CML on Gleevec No history of aneurysms or blood vessel abnormalities Does not use tobacco products NO chest pain or chest pressure Medical History: Reviewed Medications: Reviewed Surgical History: Reviewed Family history: Reviewed Allergies: Reviewed Social History: Reviewed. Denies tobacco/etoh Code Status: Full Admission Exam Per Admitting Provider General: A&Ox3. NAD. Cooperative. HEENT: Atraumatic, normocephalic. Vision/hearing grossly intact Pulm: CTAB A&P. -wheezes, -rales, -rhonchi. Symmetrical chest rise. No increased work of breathing. No respiratory distress. Cardiac: RRR, -mrg. Radial pulses intact and symmetrical. Abdominal: Nontender, nondistended, soft. BS present. Ext: sharply demarcated, exquisitely tender erythema of the LLE. Marked with surgical pen. No purulence or discharge. Discharge Exam General: No acute distress, nondiaphoretic, well-developed, well-nourished. Skin: Erythema significantly reduced from drawn border on admission. Cardiac: Regular rate and rhythm without murmurs gallops or rubs. Pulm: Clear to auscultation bilaterally without wheezes, rales or rhonchi. No retractions or accessory muscle use. Abdominal: Soft, nontender, nondistended. Bowel sounds present. Neuro: A&O x3. No focal neurological deficits. Discharge Plan Discharge Items Patient Disposition: Home - Self-Care Reason For Visit: LLE CELLULITIS Discharge Diagnosis: Left lower extremity cellulitis Activity: Resume your previous activity Non-emergency contact: Primary Care Provider Call non-emergency contact if: you have any medication questions, your symptoms worsen and you have a fever Follow-up/Referrals: Bree Branch CRNP [Primary Care Provider] - 10/01/23 10:30 am (Pt has an appointment with on September 30 at 10:30 am ) Diet: Carb Consistent or DM2 and Heart Healthy Addtl Attending Provider Instructions: Mr. Dupree, You were admitted to the hospital with cellulitis of your left lower extremity. Cellulitis is a skin/soft tissue infection caused by bacteria. You were treated with an IV antibiotic while in the hospital, and will be discharged on an oral antibiotic. Your prescription has been sent to the [facility] pharmacy in [place]. Upon discharge from the hospital: * Take Augmentin (oral antibiotic) twice daily x 7 days. It is important to complete this course of antibiotic even if you feel better. It treats the infection and stops it from returning. Not taking all of the medicine can make future infections harder to treat. * Follow-up with your PCP. Their office will call you with an appointment date and time. * Continue your other home medications as prescribed. Please return to the hospital if you experience any of the following: Fever of 100.5 F or higher, trouble or pain when moving the joints above or below the infected area, discharge or pus draining from the area, pain that gets worse in or around the infected area, redness that expands to a wider area, swelling of the infected area, persistent nausea and vomiting, lightheadedness, dizziness, confusion, shortness of breath, or chest pain. It was a pleasure taking care of you while you were in the hospital, Katy Pastor PA-C Pending Studies at Discharge: No Stand-Alone Forms: My [facility], Smoking Cessation Medications and DC Order Prescriptions: New amoxicillin-pot clavulanate 875-125 mg tablet 1 tab PO BID Qty: 14 0RF Continued atorvastatin 20 mg tablet 20 mg PO QPM Qty: 90 3RF phenytoin sodium extended 100 mg capsule 100 mg PO .COMPLEX Qty: 150 11RF Rx Instructions: 300 mg (3x100 mg) po bid per pt 100 mg PO TAKE 2 CAPSULES IN THE MORNING, 1 CAPSULE MID DAY, AND 2 CAPSULES IN THE EVENING.; metformin 500 mg tablet extended release 24 hr 500 mg PO BID Qty: 180 3RF phenobarbital 97.2 mg tablet 194.4 mg PO HS Qty: 60 5RF levothyroxine 50 mcg capsule 50 mcg PO DAILY Qty: 30 5RF losartan 50 mg tablet 75 mg PO DAILY Qty: 45 11RF Rx Instructions: pt aware dose change Held imatinib [Gleevec] 400 mg Tablet 400 mg PO HS Hold Instructions: Resume on 10/01/23. Temporarily hold for acute infection Discontinued cephalexin 500 mg capsule 500 mg PO QID 7 Days Qty: 28 0RF Discharge Orders: Discharge Order (Routine); Ordered 09/24/23 Ordered By: Katy Alejandra/Other Patient Handouts: Cellulitis Dc Admission Data Admit Date/Time: 08/14/24 13:05 Attending Provider: Anthony Morrow Admit Provider: Fantasma Julio Primary Care Provider: Bree Branch Other Providers: Fantasma Julio Other Interventions: Discharge Summary Assessment (RN) Last Done: 09/24/23 14:25 Hospital Stay Data Consultations 09/23/23 11:55 ED Decision to Admit Stat Pending Results Patient Have Any Pending Studies at Discharge: No Discharge Instructions Given to Patient (Per Discharging Provider) Kole Anaya were admitted to the hospital with cellulitis of your left lower extremity. Cellulitis is a skin/soft tissue infection caused by bacteria. You were treated with an IV antibiotic while in the hospital, and will be discharged on an oral antibiotic. Your prescription has been sent to the [facility] pharmacy in [place]. Upon discharge from the hospital: * Take Augmentin (oral antibiotic) twice daily x 7 days. It is important to complete this course of antibiotic even if you feel better. It treats the infection and stops it from returning. Not taking all of the medicine can make future infections harder to treat. * Follow-up with your PCP. Their office will call you with an appointment date and time. * Continue your other home medications as prescribed. Please return to the hospital if you experience any of the following: Fever of 100.5 F or higher, trouble or pain when moving the joints above or below the infected area, discharge or pus draining from the area, pain that gets worse in or around the infected area, redness that expands to a wider area, swelling of the infected area, persistent nausea and vomiting, lightheadedness, dizziness, confusion, shortness of breath, or chest pain. It was a pleasure taking care of you while you were in the hospital, Katy Pastor PA-C Total Time Total Time Spent Total Time Spent (In Minutes): Greater than 30 minutes spent completing this discharge process including direct patient care, medication reconciliation, documentation, review of labs and images, and coordination of care. Coding Level of Care Code 51225 INP/OBS DISCH >30 MIN Diagnoses Cellulitis L03.90 Chronic granulocytic leukemia C92.10 Type 2 diabetes mellitus without complication, without long-term current use of insulin E11.9 Diabetes mellitus type: type 2 Diabetes mellitus medical terminologist insulin use: without medical terminologist use Diabetes mellitus complication status: without complication Primary generalized epilepsy, major G40.309
== END 2023-09-24 14:55 | disposition home or self-care (01) ==
LOC: ED 11:27 → 3N 11:27 → SUATTDRO 13:05 → 3N 15:19